=== PATIENT | female | born 1960 | race Caucasian/White ===

== ENCOUNTER 2024-08-28 16:06 | Emergency (ER) | payer OTHER, SELFPAY ==
[2024-08-28 16:19] VITALS: BP 131/75; PULSE 99; RESP 18; TEMP 36.8; O2SAT 100
--- NOTE | 2024-08-28 16:22 | ED_ITS ---
HPI - Female Genitourinary General Chief complaint: Urogenital-Female Stated complaint: Possible UTI Time Seen by Provider: 08/28/24 16:09 Source: patient Mode of arrival: ambulatory Limitations: no limitations History of Present Illness HPI Narrative: Steve is a 64-year-old female patient presenting to the clinic today with complaints of possible urinary tract infection. She reports she is having burning with urination for the next 5 days. No known fevers, chills, body aches. Denies any nausea or vomiting. Denies any back pain or abdominal pain. Related Data Home Medications ?Medication ?Instructions ?Recorded ?Confirmed ?Last Taken ?Type pravastatin 20 mg tablet mg 08/28/24 Unknown History Review of Systems Review of Systems: Pertinent positives per HPI. Patient denies any fever, chills, rash, headache, visual changes, dizziness, cough, shortness of breath, chest pain, palpitations, nausea, vomiting, diarrhea, constipation, abdominal pain PMFSH Comments At the time of my signature, I reviewed and agree with the nursing past medical, surgical, social, and family history. There is no relevant family history pertinent to the patient complaint. Exam Narrative: General: Well-developed, well nourished, in no apparent distress. Head: Normocephalic, atraumatic. Cardio: Regular rate and rhythm, s1 and s2 normal, no murmur appreciated. Resp: Clear to auscultation bilaterally, no rhonchi, rales, wheezing or rubs. Abdomen: Soft, pliable, bowel sounds present in all quadrants, suprapubic tender to palpation, no organomegly, no CVAT tenderness. Course Course Emergency Course: Portions of this record may have been created with voice recognition software. Level of Care: Express Care Visit Vital Signs Vital signs: Vital Signs Temperature 36.8 C 08/28/24 16:19 Pulse Rate 99 08/28/24 16:19 Respiratory Rate 18 08/28/24 16:19 Blood Pressure 131/75 08/28/24 16:19 Pulse Oximetry 100 08/28/24 16:19 Oxygen Delivery Room Air 08/28/24 16:19 Temperature 36.8 C 08/28/24 16:19 Pulse Rate 99 08/28/24 16:19 Respiratory Rate 18 08/28/24 16:19 Blood Pressure 131/75 08/28/24 16:19 Pulse Oximetry 100 08/28/24 16:19 Oxygen Delivery Room Air 08/28/24 16:19 Vital signs reviewed MDM - Female Genitourinary MDM Narrative Medical decision making narrative: At the time of visit patient is resting comfortably on the exam table. Patient appears to be nontoxic. Labs: Urinalysis positive for nitrates and blood. We will send urine for culture. Plan: I suspect patient has acute cystitis. Prescription for Bactrim was sent to the pharmacy. Supportive measures were discussed with the patient and they voiced understanding discharge instructions and agrees to treatment plan. Return precautions reviewed Differential Diagnosis Differential diagnosis: Likely urinary tract infection and cystitis Lab Data Labs: Lab Results 08/28/24 Range/Units 16:31 POC Urine Color Yellow POC Urine Clarity Clear POC Urine pH 6.5 POC Ur Specif [place] 1.010 POC Urine Protein Negative (Negative) POC Ur Glucose (UA) Negative (Negative) POC Urine Ketones Negative (Negative) POC Urine Blood Trace (Negative) POC Urine Nitrite Positive (Negative) POC Urine Bilirubin Negative (Negative) POC Urine Urobilinogen 0.2 POC U Leukocyte Esteras Negative (Negative) Discharge Plan Discharge Clinical Impression: Urinary tract infection Qualifiers: Urinary tract infection type: acute cystitis Hematuria presence: with hematuria Qualified Code(s): N30.01 - Acute cystitis with hematuria Patient Disposition: Home Condition: Stable Instructions: Antibiotic Form, Urinary Tract Infection in Women (ED) Additional Instructions: Increase fluids and stay well hydrated Wipe front to back. May use wet wipes. Avoid tub baths If sexually active- pee before and after intercourse. Wear cotton panties Avoid tight clothing up against the genitals Follow up with your PCP in 1 week if symptoms persist. Patient Language: Ugandan Prescriptions: New sulfamethoxazole-trimethoprim [Bactrim DS] 800-160 mg tablet 1 tablet PO Q12H 7 Days Qty: 14 0RF No Action pravastatin 20 mg tablet Follow-up/Referrals: PHYSICIAN,ARMHOLE [employer]LLER HANDSTITCHING MACHINE [Primary Care Provider] - Time of Disposition: 16:38 Quality NIHSS Nursing Documentation ED NIHSS nursing documentation: reviewed/agree
[2024-08-28 16:34] LABS: EDUAAPPEAR Clear; EDUABILI Negative (Negative); EDUABLOOD Trace (Negative); EDUACOLOR1 Yellow; EDUAGLUCOSE Negative (Negative); EDUAKETONE Negative (Negative); EDUALEUKO Negative (Negative); EDUANITRATE Positive (Negative); EDUAPH 6.5; EDUAPROTEIN Negative (Negative); EDUAUROBILI 0.2
--- OUTSIDE RECORDS SUMMARY | 2024-08-28 17:48 | XMS_ITS | Clinical Summary ---
Author Organization [facility] Address [address] [place] [address] Care Team Providers Care Area Field Person Name Role Phone Merle Rasmussen MD Primary Care Provider + Allergies Active Allergy Reactions Criticality Noted Date Comments Amoxicillin-Pot Clavulanate Other (see comment) 02/16/2024 Pressure in chest Ciprofloxacin Other (see comment) 02/16/2024 Pressure in chest Morphine Shortness of Breath High 02/16/2024 Medications pravastatin (PRAVACHOL) 20 MG tabletIndications: Mixed hyperlipidemia Take 1 tablet (20 mg total) by mouth nightly at bedtime. 90 tablet 3 02/16/20 24 025 Active Sodium Sulfate-Mag Sulfate-KCl (SUTAB) 2236-679-042 MG TabIndications:Pos itive colorectal cancer screening using Cologuard test Take 12 tablets by mouth see administration instructions. Take 12 tablets at 5:00pm the evening before colonoscopy then take 12 tablets at 4:00am morning of colonoscopy. 24 tablet 04/21/20 Active Additional Information Patient not taking.Reported on 06/29/2024 Multiple Vitamin (MULTIVITAMIN ADULT OR) Take by mouth. Activ e vitamin D3, cholecalciferol, (D 1000) 25 mcg capsule Take 1 capsule (1,000 Units total) by mouth. Active Active Problems Problem Noted Date Diagnosed Date Positive colorectal cancer screening using Colog uard test 04/21/2024 Prediabetes 02/24/2024 Mixed hyperlipidemia 02/16/2024 Overview (02/16/2024): Pt takes pravastatin. Tolerates well. Assessment & Plan (02/16/2024 11:54 AM CDT): Ordered CMP and lipid panel to evaluate level of control. Continue pravastatin. Hx of cancer of lung 02/16/2024 Overview (02/16/2024): Followed with cardiothoracic surgery. S/p lung resection. No chemo/radiation. Had two types of cancer. Records will be requested. Assessment & Plan (02/16/2024 11:57 AM CDT): Will request records to get more details on type of cancer and management. Former smoker 02/16/2024 Overview (02/16/2024): Quit 2016. Osteopenia 02/16/2024 Overview (02/16/2024): Takes vitamin D and calcium Encounters Date Type Department Care Team Description 06/29/2024 8:40 AM WINE MANAGER [facility] - [address] [place] [address] Irving Chavira, Shortness Of Breath 06/29/2024 [facility] - [facility] [address] [place] [address] Irving Chavira, Records 06/29/2024 [facility] [address] [place] [address] Irving Chavira, Records 06/29/2024 Travel 06/14/2024 9:30 AM WINE MANAGER Anesthesia Event [facility] [address] [place] [address] Brigida Glover CRNA Hitt, Tracy A, CRNA 06/14/2024 9:15 AM WINE MANAGER - 06/14/2024 10:00 AM [facility] Surgery [facility] [address] [place] [address] Jayleen Newsome MD COLONOSCOPY WITH POLYPECTOMIES 06/14/2024 7:32 AM WINE MANAGER - 06/14/2024 11:00 AM [facility] Hospital Encounter [facility] [address] [place] [address] Jayleen Newsome MD Discharge Disposition: Home or Self Care (Routine Discharge) 06/14/2024 Travel from Last 3 Months Immunizations Immunization Administration Dates Next Due Influenza Adult (Generic) 02/21/2019,02/07/2015 PFIZER COVID-19 (ORIGINAL FO RMULATION, PURPLE CAP) mRNA, LNP-S, PF, 30 MCG/0.3 ML DOSE 07/19/2020,06/27/2020 Pneumococcal (Prevnar 20) 02/16/2024 Tdap (Generic) 05/29/2015 Family History Medical History Relation Comments No Known Problems Brother 1 No Known Problems Child 1 No Known Problems Child 2 Cancer Father Dementia Mother No Known Problems Sister Relation Status Comments Brother 1 Alive Brother 2 Child 1 Alive Child 2 Alive Father lung, smoker, me sothelioma Mother Alive Sister Alive Social History Tobacco Use Types Packs/Day Years Used Date Smoking Tobacco: Former Cigarettes 1 15 Q uit: 08/23/2015 Smokeless Tobacco: Never Tobacco Cessation:Counseling Given: Yes Comments:1 PPD 35 years Alcohol Use Standard Drinks/Week Comments Never 0 (1 standard drink = 0.6 oz pur e alcohol) PHQ-2 Answer Date Recorded Patient Health Questionnaire-2 Score 0 06/29/2024 Comments Unknown Sex and Gender Information Value Date Recorded Sex Assigned at Not on file Legal Sex Female 2:03 PM CDT Gender Identity Not on file Sexual Orientation Not on file 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 [employer] Not on file Not on file Not on file Last Filed Vital Signs Vital Sign Reading Time Taken Comments Blood Pressure 158/80 06/29/2024 9:33 AM WINE MANAGER Pulse 90 06/29/2024 8:53 AM WINE MANAGER Temperature 36.5 C (97.7 F) 06/29/2024 8:53 AM WINE MANAGER Respiratory Rate 18 06/29/2024 8:53 AM WINE MANAGER Oxygen Saturation 98% 06/29/2024 8:53 AM WINE MANAGER RA Inhaled Oxygen Concentration - - Weight 73 kg (161 lb) 06/29/2024 8:53 AM WINE MANAGER Height 165.1 cm (5' 5 ) 06/29/2024 8:53 AM WINE MANAGER Body Mass Index 26.79 06/29/2024 8:53 AM WINE MANAGER Plan of Treatment Upcoming Encounters Date Type Department Care Team (Late st Contact Info) Description 09/28/2024 11:30 AM CDT Office Visit [facility] [address] [place] [address] Irving Chavira DO [address] [place] [address] Health Maintenance Due Date Last Done Comments Hepatitis C 07/31/1977 Zoster Vaccines (1 of 2) 07/31/2009 COVID-19 Vaccine ( - season) 2024 08/29/2021, 02/16/2021, 07/19/2020, Additional history exists DTaP, Tdap and Td Vaccines (2 - Td or Tdap) 05/29/2025 05/29/2015 Mammogram Screening 03/24/2026 03/24/2024, 12/04/2022, 12/04/2022, Additional history exists Colorectal Cancer Screening Colonoscopy (10 Years) 06/14/2034 06/14/2024, 06/14/2024 RSV Immunization or 60+ Years (1 - 1-dose 75+ series) 07/31/2034 Dexa Scan (General) Completed 09/11/2022 Pneumococcal Vaccine: 50+ Years Completed 02/16/2024 Colorectal Cancer Screening FIT-DNA (3 Years) Discontinued 03/01/2024, 03/01/2024, 07/15/2020 PHQ-2 (Physician [place]) Completed 06/29/2024 Meningococcal B Vaccine Aged Out No l onger eligible based on patient's age to complete this topic Meningococcal Vaccine Aged Out No robert joseline eligible based on patient's age to complete this topic RSV Immunizations Under 20 Months Aged Out No longer eligible based on patient's age to complete this topic Procedures Procedure Name Priority Date/Time Associated Diagnosis Comments COLONOSCOPY FLX DX W/COLLJ SPEC WHEN PFRMD 06/14/2024 9:30 AM WINE MANAGER Positive colorectal cancer screening using Cologuard test Case Notes C COLONOSCOPY Routine 06/14/2024 7:42 AM WINE MANAGER PATHOLOGY Routine 06/14/2024 12:00 AM WINE MANAGER MG SCREENING W QUENTIN BOYD DIGI Routine 03/24/2024 7:21 AM WINE MANAGER Encounter for mammogram to establish baseline mammogram COLOGUARD (EXACT SCIENCE) Routine 03/01/2024 9:45 AM CDT Colon cancer screening from Last 3 Months or Most Recently Relevant to Health Maintenance Results * Pathology (06/14/2024 12:00 AM WINE MANAGER) PATHOLOGY [facility] Department of Laboratory Medicine [address] [place] [id number] , extension [phone] Pathology Report Surgical Pathology Report Name: STEVE ABEL Specimen #: [id number] Age: 3 1960 (Age: 63) Location: [facility] Sex: F Procedure Date: 06/14/2024 Hospital #: [id number] Date Received: 06/15/2024 Date Reported: 06/16/2024 Provider: JAYLEEN NEWSOME MD Source: A: Colon, hepatic flexure, polyp B: Colon, descending, polyp C: Rectum, polyp Clinical History: Positive colorectal cancer screening using Cologuard test. FINAL DIAGNOSIS: A. Hepatic flexure polyps, biopsy: Minimal hyperplastic mucosal changes. B. Descending colon polyp, biopsy: Hyperplastic polyp. C. Rectal polyp, biopsy: Hyperplastic polyp. Gross Description: A. Received in formalin, labeled with a patient label and as biopsy of polyps hepatic flexure are 2 pieces of pink-gonzales tissue each 0.2 cm. The specimen is entirely submitted in cassette A1. B. Received in formalin, labeled with a patient label and as descending colon polyp biopsy is a 0.3 cm piece of gonzales tissue. The specimen is entirely submitted in cassette B1. C. Received in formalin, labeled with a patient label and as rectal polyp is a 0.1 cm piece of delicate white-gonzales tissue. The specimen is entirely submitted in cassette C1. Gross examination (when applicable) was performed at [facility], [address] [place] [address]. This case was interpreted and signed out at [facility] [address] [place] [address]. Electronically Signed Out STAR MANNING MD [facility] TISSUE COLON STRUCTURE / Unknown 06/14/2024 9:47 AM WINE MANAGER Tissue specimen (specimen) COLON STRUCTURE / Unknown 06/14/2024 9:51 AM WINE MANAGER Tissue specimen (specimen) SPECIMEN FROM RECTUM / Unknown 06/14/2024 9:55 AM WINE MANAGER us Jayleen Newsome MD PATHOLOGY/CYTOLOGY ORDERABLE S Final Result [facility] [address] [place] [address], [phone] * MG SCREENING W QUENTIN BOYD DIGI (03/24/2024 7:21 AM WINE MANAGER) Anatomical Region Laterality Modality Breast Bilateral Mammography 04/11/2024 1:16 PM WINE MANAGER Impressions 04/11/2024 1:19 PM WINE MANAGER IMPRESSION: No significant interval change. No mammographic evidence of malignancy. RECOMMENDATION: Routine ScreeningBilateral OVERALL IMAGING ASSESSMENT: ACR BI-RADS 2 - BENIGN FINDING(S). Ordered By: MERLE RASMUSSEN Interpreted By: Brayan Cary, 04/11/2024 1:16 PM Narrative 04/11/2024 1:19 PM WINE MANAGER [facility] [address] [place] [address] EXAMINATION: MG SCREENING W QUENTIN ENRIQUE INDICATIONS: Screening TECHNIQUE: Digital full field CC and MLO screening mammography bilaterally to include 3-D Tomosynthesis technique. This study was read with the assistance of a computer-aided detection system. HISTORY: No reported breast complaint. No documented personal or first degree family history of breast cancer. No documented prior breast procedure. COMPARISON: 11/26/2022, 10/31/2022, 10/27/2021, and 10/02/2021. TISSUE DENSITY: The breasts are heterogeneously dense, which may obscure small masses. FINDINGS: Few scattered typically benign round and rim calcifications. No suspicious microcalcification or mass. No developing asymmetry or architectural distortion. No axillary adenopathy. us Merle Rasmussen MD MAMMO Final Re sult * (ABNORMAL) COLOGUARD ([employer]) (03/01/2024 9:45 AM CDT) COLOGUARD RESULT Positive( A) Negative [employer] (CLIA #:[id number]) Comment: POSITIVE TEST RESULT. A positive Cologuard result should be followed with a colonoscopy or visual examination of the colon. The normal value (reference range) for this assay is negative. TEST DESCRIPTION: Composite algorithmic analysis of stool DNA-biomarkers with hemoglobin immunoassay. Quantitative values of individual biomarkers are not reportable and are not associated with individual biomarker result reference ranges. Cologuard is intended for colorectal cancer screening of adults of either sex, 45 years or older, who are at average-risk for colorectal cancer (CRC). Cologuard has been approved for use by the U.S. FDA. The performance of Cologuard was established in a cross sectional study of average-risk adults aged 50-84. Cologuard performance in patients ages 45 to 49 years was estimated by sub-group analysis of near-age groups. Colonoscopies performed for a positive result may find as the most clinically significant lesion: colorectal cancer [4.0%], advanced adenoma (including sessile serrated polyps greater than or equal to 1cm diameter) [20%] or non- advanced adenoma [31%]; or no colorectal neoplasia [45%]. These estimates are derived from a prospective cross-sectional screening study of 10,000 individuals at average risk for colorectal cancer who were screened with both Cologuard and colonoscopy. (Sharda Mckeon al, N Engl J Med 2014;370(14):0565-3561.) Cologuard may produce a false negative or false positive result (no colorectal cancer or precancerous polyp present at colonoscopy follow up). A negative Cologuard test result does not guarantee the absence of CRC or advanced adenoma (pre-cancer). The current Cologuard screening interval is every 3 years. ([place] [employer] Society and U.S. Multi-Society Task Force). Cologuard performance data in a 10,000 patient pivotal study using colonoscopy as the reference method can be accessed at the following location: www.[employer]bit.[employer]Plex/results. Additional description of the Cologuard test process, warnings and precautions can be found at www.cologuard.com. STOOL STOOL SPECIMEN / Unknown 03/01/2024 9:45 AM CDT 03/02/2024 12:01 PM CDT Merle Rasmussen MD BODY FLUIDS AND STOOLS O RDERABLES Final Result [employer] ([facility]) [address] [place] [address], [employer] (CLIA #:[id number]) [address] [place] [address] from Last 3 Months or Most Recently Relevant to Health Maintenance Insurance [facility] Care Teams Area Field Person Relationship Specialty Start Date End Date Merle Rasmussen MD [address] [place] [phone] PCP - General FAMILY PRACTICE 02/16/24
--- OUTSIDE RECORDS SUMMARY | 2024-08-28 17:48 | XMS_ITS | Data Portability ---
Author Organization [place] - [facility] [place], TEST SITE Address [address] [place] [id number] Care Team Providers Care Clerical Office Name Role Phone LISBETHBRIGIDA Primary Care Provider Assessment Encounter Date Assessment Date Assessment LastModified by Organization Details LastModified Time 05/06/2020 05/06/2020 59 y/o female c/ o Right side pain. On March 11 patient had Rt. lung removed due to lung cancer. She describes her pain as tender and sharp lasting a few moments. Patient's pain level runs 7-8 interfering with sleep and work. She was taking hydrocodone at night time pain has eased up but states that the hydrocodone is not agreeing with her stomach and is causing stomach pain. She states that her cardiothoracic surgeon instructed her not to receive any nerve blocks. I will consult with him and discuss intercostal nerve blocks. 22 minutes spent in telehealth consultation, chart review and documentation. [email or web address] Not available 05/06/2020 19:54:18 06/24/2020 06/24/2020 f/u pending CT, MRI, DEXA, and lipids RTC in 5 months for f/u appt. HR elevated at 112- admits she has not had much water to drink and has had several cups of coffee today- advised her to purchase pulse oximeter and monitor HR- if consistently > 100 f/u in office for evaluation. [email or web address] Not available 06/24/2020 21:43:45 Plan of Treatment Reminders Order Date Submit Date Provider Last Modified By Organization Details Last Modified Time Details Appointments None recorded. Lab noninvasive colorectal cancer DNA + occult blood screening, stool 2020 021 [facility] (Cologuard Orders Only), [address], [address], [place], [address], 13:25:01 lipid panel, serum 2020 021 formerly [facility] [employer] [facility], [address] , [address], [place], [address], 18:55:09 Referral ENT referral - h/o amoxicillin , doxy, medrol ajay, and levaquin use w/ minimal relief 2020 021 DA Not available 11:01:08 Procedures None recorded. Surgeries None recorded. Imaging CT, sinuses, w/o contrast 2020 021 [email or web address] 4 [facility], [facility] , [address], [place], [address], 1 16:35:11 MRI, breast, bilateral, w/wo contrast - pt has h/o total pneumonecto my and is still very sore and tender to endure traditional mammogram 2020 [facility] [place] [address], [facility] , [address], [place], [address], 1 16:34:48 DEXA 2020 021 [facility], [facility] , [address], [place], [address], 1 18:55:09 Medication Orders famotidine 20 mg tablet [address] [facility] [address], [address] [facility], [place], [address], 1 18:55:09 levofloxaci n 500 mg tablet 2020 021 brandan [facility] 5726, [address] [place], [address], 15:25:00 doxycycline hyclate 100 mg capsule 2020 021 [facility] 5726, [address] [place], [address], 15:25:03 Medrol (Ajay) 4 mg tablets in a dose pack 2020 021 [facility] 5726, [address] [place], [address], 15:25:06 tramadol 50 mg tablet 2019 020 [facility], [address] [place], [address], 15:25:09 Patient TargetsNo targets recorded. Patient Instructions Encounter Date Encounter Id Patient Instructions Last Modified By Organization Details Last Modified Time 06/24/2020 [id number] well visit, wome n 50 to 65: care instructions [email or web address] Not available 06/24/2020 18:55:09 wellness education [email or web address] Not available 06/24/2020 18:55:09 Reason for Referral ENT Referral for Maxillary s inus pain h/o amoxicillin, doxy, medrol ajay, and levaquin use w/ minimal relief Referring Physician: Brigida Mosquera, Family Medicine, Encounter Date: 06/24/2020 Results Created Date Observation Date Name Description Value Unit Range Abnormal Flag Note LastModifiedBy Organization Detail LastModifiedTime 04/29/20 20 04/29/2020 rapid flu (A+B) Flu negati ve Not Available In-House Results For Internal Use Only, Do Not Delete/merge, [id number] 04/29/2020 16:50:53 04/29/20 20 04/29/2020 rapid strep group A, throa t Strep positi ve Not Available In-House Results For Internal Use Only, Do Not Delete/merge, [id number] 04/29/2020 16:50:37 04/29/20 20 05/01/2020 SARS CoV 2 RNA (COVI D-19) , QL, production cell leader-P CR, respi rator y speci men sars-cov-2, FLO (covid-19) lc NOT DETECT ED not detect ed Na This nucle ic acid ampli ficat ion test was devel oped and its perfo rmanc e ady cteri stics deter mined by [facility]. Nucle ic acid ampli ficat ion tests inclu de PCR and TMA. This test has not been FDA clear ed or appro kathy. This test has been autho rized by FDA under an Emerg ency Use Autho rizat ion (EUA) . This test is only autho rized for the durat ion of time the decla ratio n that circu mstan stacy exist justi fying the autho rizat ion of the emerg ency use of in vitro diagn ostic tests for detec tion of SARS- CoV-2 virus and/o r diagn osis of COVID -19 infec tion under secti on 564(b )(1) of the Act, 21 U.S.C . 360bb b-3(b ) (1), unles s the autho rizat ion is termi nated or revok ed soone r. When diagn ostic testi ng is negat suzy, the possi bilit y of a false negat suzy resul t shoul d be consi dered in the alena xt of a patie nt's recen t expos ures and the prese nce of clini dk signs and sympt oms consi stent with COVID -19. An indiv idual witho ut sympt oms of COVID -19 and who is not natasha ing SARS- CoV-2 virus would expec t to have a negat suzy (not detec jose) resul t in this assay . Perfo rmed At: [facility] [place] [address] [place] [address] Radha Rosen MD [phone] Not Available [facility] ([facility]) [address], [place], [address], 05/01/2020 17:15:47 06/18/19 21 06/19/2020 CMP, serum or plasm a glucose 102 mg/dL 65-99 high Fasti ng refer ence inter vivian For someo ne witho ut known diabe shira, a gluco se value betwe en 100 and 125 mg/dL is consi stent with predi abete s and shoul d be confi rmed with a follo w-up test. Not Available [facility] [address], [address], 06/19/2020 07:56:01 06/18/1906/19/2020 CMP, serum or plasm a urea nitrogen (BUN) 13 mg/dL 7-25 normal Not Available [facility] [address], [address], 06/19/2020 07:56:01 06/18/1906/19/2020 CMP, serum or plasm a creatinine 0.94 mg/dL 0.50-0 .99 normal For patie nts >49 years of age, the refer ence limit for Creat inine is appro ximat iwll 13% highe r for peopl e ident ified as Afric an-Am abby n. Not Available [facility] [address], [address], 06/19/2020 07:56:01 06/18/19 21 06/19/2020 CMP, serum or plasm a eGFR non-afr. paraguayan 66 mL/mi n/1.7 3m2 > or = 60 normal Not Available [facility] [address], [address], 06/19/2020 07:56:01 06/18/1906/19/2020 CMP, serum or plasm a eGFR 76 mL/mi n/1.7 3m2 > or = 60 normal Not Available [facility] [address], [address], 06/19/2020 07:56:01 06/18/19 21 06/19/2020 CMP, serum or plasm a BUN/creatini ne ratio NOT APPLIC ABLE (calc ) 6-22 Not Available [address] [place], [address], 06/19/2020 07:56:01 06/18/19 21 06/19/2020 CMP, serum or plasm a sodium 136 mmol/ L 135-14 6 normal Not Available [address] [place], [address], 06/19/2020 07:56:01 06/18/1906/19/2020 CMP, serum or plasm a potassium 4.2 mmol/ L 3.5-5. 3 normal Not Available [address], [address], 06/19/2020 07:56:01 06/18/1906/19/2020 CMP, serum or plasm a chloride 101 mmol/ L 98-110 normal Not Available [address], [address], 06/19/2020 07:56:01 06/18/1906/19/2020 CMP, serum or plasm a carbon dioxide 22 mmol/ L 18-30 normal Not Available [address], [address], 06/19/2020 07:56:01 06/18/1906/19/2020 CMP, serum or plasm a calcium 9.9 mg/dL 8.6-10 .4 normal Not Available [address], [address], 06/19/2020 07:56:01 06/18/1906/19/2020 CMP, serum or plasm a protein, total 7.4 g/dL 6.1-8. 1 normal Not Available [address], [address], 06/19/2020 07:56:01 06/18/1906/19/2020 CMP, serum or plasm a albumin 4.2 g/dL 3.6-5. 1 normal Not Available [address], [address], 06/19/2020 07:56:01 06/18/19 21 06/19/2020 CMP, serum or plasm a globulin 3.2 g/dL_ (calc ) 1.9-3. 7 normal Not Available [address], [address], 06/19/2020 07:56:01 06/18/1906/19/2020 CMP, serum or plasm a albumin/glob ulin ratio 1.3 (calc ) 1.0-2. 5 normal Not Available [address], [address], 06/19/2020 07:56:01 06/18/1906/19/2020 CMP, serum or plasm a bilirubin, total 0.3 mg/dL 0.2-1. 2 normal Not Available [address], [address], 06/19/2020 07:56:01 06/18/1906/19/2020 CMP, serum or plasm a alkaline phosphatase 128 U/L 37-153 normal Not Available [facility] [address], [address], 06/19/2020 07:56:01 06/18/1906/19/2020 CMP, serum or plasm a AST 13 U/L 10-35 normal Not Available [address], [address], 06/19/2020 07:56:01 06/18/1930 0606/19/2020 CMP, serum or plasm a ALT 8 U/L 6-29 normal Not Available [facility] [address] [place] [address], [address], 06/19/2020 07:56:01 06/18/19 21 06/19/2020 CBC w/ auto diff white blood cell count 8.2 thous and/u L 3.8-10 .8 normal Not Available [address], [address], 06/19/2020 07:53:39 06/18/19 21 06/19/2020 CBC w/ auto diff red blood cell count 4.92 ceasar on/uL 3.96-5 .31 normal Not Available [address], [address], 06/19/2020 07:53:39 06/18/19 21 06/19/2020 CBC w/ auto diff hemoglobin 13.7 g/dL 12.0-1 6.3 normal Not Available [address], [address], 06/19/2020 07:53:39 06/18/19 21 06/19/2020 CBC w/ auto diff hematocrit 42.0 % 36.8-4 9.5 normal Not Available [address], [address], 06/19/2020 07:53:39 06/18/1906/19/2020 CBC w/ auto diff MCV 85.4 fL 80.0-1 00.0 normal Not Available [address], [address], 06/19/2020 07:53:39 06/18/19 21 06/19/2020 CBC w/ auto diff MCH 27.8 pg 27.0-3 3.0 normal Not Available [address], [address], 06/19/2020 07:53:39 06/18/19 21 06/19/2020 CBC w/ auto diff MCHC 32.6 g/dL 32.0-3 6.0 normal Not Available [address], [address], 06/19/2020 07:53:39 06/18/19 21 06/19/2020 CBC w/ auto diff RDW 12.3 % 11.0-1 5.0 normal Not Available [address], [address], 06/19/2020 07:53:39 06/18/19 21 06/19/2020 CBC w/ auto diff platelet count 325 thous and/u L 140-40 0 normal Not Available [address], [address], 06/19/2020 07:53:39 06/18/19 21 06/19/2020 CBC w/ auto diff MPV 11.0 fL 7.5-12 .5 normal Not Available [address], [address], 06/19/2020 07:53:39 06/18/19 21 06/19/2020 CBC w/ auto diff absolute neutrophils 6183 cells /uL 1500-7 800 normal Not Available [address], [address], 06/19/2020 07:53:39 06/18/19 21 06/19/2020 CBC w/ auto diff absolute lymphocytes 1222 cells /uL 850-39 00 normal Not Available [address], [address], 06/19/2020 07:53:39 06/18/19 21 06/19/2020 CBC w/ auto diff absolute monocytes 508 cells /uL 200-95 0 normal Not Available [facility] [address], [address], 06/19/2020 07:53:39 06/18/19 21 06/19/2020 CBC w/ auto diff absolute eosinophils 230 cells /uL 15-500 normal Not Available [facility] [address], [address], 06/19/2020 07:53:39 06/18/19 21 06/19/2020 CBC w/ auto diff absolute basophils 57 cells /uL 0-200 normal Not Available [facility] [address], [address], 06/19/2020 07:53:39 06/18/19 21 06/19/2020 CBC w/ auto diff neutrophils 75.4 % normal Not Available [facility] [address], [address], 06/19/2020 07:53:39 06/18/19 21 06/19/2020 CBC w/ auto diff lymphocytes 14.9 % normal Not Available [facility] [address], [address], 06/19/2020 07:53:39 06/18/19 21 06/19/2020 CBC w/ auto diff monocytes 6.2 % normal Not Available [facility] [address], [address], 06/19/2020 07:53:39 06/18/19 21 06/19/2020 CBC w/ auto diff eosinophils 2.8 % normal Not Available [facility] [address], [address], 06/19/2020 07:53:39 06/18/19 21 06/19/2020 CBC w/ auto diff basophils 0.7 % normal Not Available [facility] [address], [address], 06/19/2020 07:53:39 06/18/19 21 06/19/2020 TSH, serum or plasm a TSH 2.29 mIU/L 0.40-4 .50 normal Not Available [facility] - [address], [address], 06/19/2020 08:15:29 06/18/19 21 06/19/2020 urina lysis , dipst ick, refle x micro color YELLOW yellow normal Not Available [facility] - [address], [address], 06/19/2020 08:08:04 06/18/19 21 06/19/2020 urina lysis , dipst ick, refle x micro appearance CLEAR clear normal Not Available [facility] - [address], [address], 06/19/2020 08:08:04 06/18/19 21 06/19/2020 urina lysis , dipst ick, refle x micro specific gravity 1.013 1.001- 1.035 normal Not Available [facility] - [address], [address], 06/19/2020 08:08:04 06/18/1906/19/2020 urina lysis , dipst ick, refle x micro pH 6.0 5.0-8. 0 normal Not Available [facility] - [address], [address], 06/19/2020 08:08:04 06/18/1906/19/2020 urina lysis , dipst ick, refle x micro glucose NEGATI VE negati ve normal Not Available [facility] - [address], [address], 06/19/2020 08:08:04 06/18/1906/19/2020 urina lysis , dipst ick, refle x micro bilirubin NEGATI VE negati ve normal Not Available [facility] - [address] [place], [address], 06/19/2020 08:08:04 06/18/19 21 06/19/2020 urina lysis , dipst ick, refle x micro ketones NEGATI VE negati ve normal Not Available [facility] - [address] [place], [address], 06/19/2020 08:08:04 06/18/19 21 06/19/2020 urina lysis , dipst ick, refle x micro occult blood TRACE negati ve abnormal Not Available [facility] - [address], [address], 06/19/2020 08:08:04 06/18/19 21 06/19/2020 urina lysis , dipst ick, refle x micro protein NEGATI VE negati ve normal Not Available [facility] - [address], [address], 06/19/2020 08:08:04 06/18/19 21 06/19/2020 urina lysis , dipst ick, refle x micro nitrite NEGATI VE negati ve normal Not Available [facility] - [address], [address], 06/19/2020 08:08:04 06/18/1906/19/2020 urina lysis , dipst ick, refle x micro leukocyte esterase 3+ negati ve abnormal Not Available [facility] - [address], [address], 06/19/2020 08:08:04 06/18/19 21 06/19/2020 urina lysis , dipst ick, refle x micro WBC 6-10 /hpf < or = 5 abnormal Not Available [facility] - [address], [address], 06/19/2020 08:08:04 02/09/20 21 06/19/2020 urina lysis , dipst ick, refle x micro RBC NONE SEEN /hpf < or = 2 normal Not Available [facility] [address] [place] [address], [place], [address], 06/19/2020 08:08:04 06/18/19 21 06/19/2020 urina lysis , dipst ick, refle x micro squamous epithelial cells 6-10 /hpf < or = 5 abnormal Not Available [facility] [address] [place] [address], [place], [address], 06/19/2020 08:08:04 06/18/19 21 06/19/2020 urina lysis , dipst ick, refle x micro bacteria NONE SEEN /hpf none seen normal Not Available [facility] [address] [place] [address], [place], [address], 06/19/2020 08:08:04 06/18/19 21 06/19/2020 urina lysis , dipst ick, refle x micro hyaline cast NONE SEEN /lpf none seen normal Not Available [facility] - [address], [place], [address], 06/19/2020 08:08:04 06/18/19 21 06/20/2020 vitam in D, 25-hy droxy , total , serum vitamin D, 25-oh, total 64 NG/mL 30-100 (Note ) Vitam in D, 25-Hy droxy repor ts keira ntrat ions of two commo n forms , 25-OH D2 and 25-OH D3. 25-OH D3 indic ates both endog enous produ ction and suppl ement ation . 25-OH D2 is an indic ator of exoge nous sourc es such as diet or suppl ement ation . Thera py is based on measu remen t of Total 25-OH D, with level s <20 ng/mL indic ative of Vitam in D defic iency , while level s betwe en 20 ng/mL and 30 ng/mL sugge st insuf ficie ncy. Optim al level s are > or = 30 ng/mL . Vitam in D is fat-s olubl e and there fore inadv erten t or inten jaimie l inges tion of exces sivel y high amoun ts could be toxic . Studi es in child dano and adult s sugge st blood level s would need to excee d 150 ng/mL befor e there is any keira rn. Jaya suarez MF, Diane hinton NC, Jewell off-f errar i GUPTA, et al. Evalu ation , treat ment and preve ntion of vitam in D defic iency : an Endoc rine Socie ty clini dk pract ice guide line. J Clin Endoc rinol Metab . 2011; 96(7) :1911 -30. For addit ional infor lanre ruiz refer to http: //hola quesada.Que stDia gnost ics.c om/fa q/FAQ 199 Not Available [facility] [address] [place], [address], 06/20/2020 14:37:39 06/18/19 21 06/20/2020 vitam in D, 25-hy droxy , total , serum vitamin D, 25-oh, D3 64 NG/mL Refer ence range : Not estab lishe d Not Available [facility] [address] [place], [address], 06/20/2020 14:37:39 06/18/19 21 06/20/2020 vitam in D, 25-hy droxy , total , serum vitamin D, 25-oh, D2 <4.0 NG/mL (Note ) Refer ence range : Not estab lishe d This test was devel oprichard and its naseem tical perfo rmanc e ady cteri stics have been deter mined by davian rosario. It has not been clear ed or appro kathy by the [place] Food and Drug Admin istra tion. This assay has been valid ated pursu ant to the CLIA regul ation and is used for Clini dk purpo ses. [facility] med fusio n [address] [facility] [address] [place] [address] [phone] Arsenio matamoros MD See Note 1 Note 1 For addit ional infor lanre ruiz refer to http: //hola Lazo stDia gnost ics.c om/fa q/FAQ 199 (This link is being provi ded for infor alisson nal/ educa jaimie l purpo ses only. ) Not Available [facility] [address] [place], [address], 06/20/2020 14:37:39 04/08/20 20 04/08/2020 XR, chest PROCED URE: CHEST, 3 VIEW, 2019, 2:41 PM INDICA TION: Status post right pneumo nectom y. COMPAR JOSE G: 2019, 2009, 2019 FINDIN GS: PA, apical and latera l views of the chest. Comple te opacif icatio n of right hemith orax with volume loss and discre te termin ation of right mainst em bronch us. Left to right medias tinal shift. Small amount of subcut aneous emphys talia over the right mid abdome n. Overal l, subcut aneous emphys talia, marked ly decrea sed compar ed to previo us radiog raph. Status post partia l resect ion, director of pulmonary unit ior right sixth rib. IMPRES WILVER: STATUS POST RIGHT PNEUMO NECTOM Y WITH RIGHT VOLUME LOSS. INTERP RETED AND ELECTR ONICAL LY SIGNED BY: ROSEMARY WARD MD on 2019 at 04:12 PM Final Dictat ed: 2019 4:17 pm Rosemary Long MD [facility] [place] Signed (Bean craft Signat ure): 2019 4:17 pm Signed by: Rosemary Long MD [facility] [place] [email or web address] [facility] (Imaging) [address], [place], [address], 04/09/2020 12:07:33 07/05/19 21 07/05/2020 rad - CT repor t THIS EXAM IS THE PROPER TY OF [facility] . TO OBTAIN AN ORIGIN AL REPORT , PLEASE RUBA YEUNG AT . [facility] [address], [address] [place] [address] Phone: Fax: Patien t Name: ANCA ABEL Date of : 960 [facility] 2 Access ion Number : [id number] Date of Servic e: 021 10:30: [address] SINUS WITHOU T IV CONTRA ST 021 10:30 AM Compar isons: None provid ed Indica tions: CHRONI C SINUSI TIS/ HOSPITALITY RECRUITER *RTN* [facility]; CHRONI C SINUSI TIS; ADDL: Maxill laura sinus pain. Headac he, unspec ified. ; Protoc ol: 2.5 mm axial sectio ns were review ed throug h the parana mateusz sinuse s was simila r field- of-vie w. Bone and soft tissue algori thms were marcel d. Interiano l reform ats were perfor med and review ed. It is our policy to use one or more of the follow ing dose reduct ion techni ques when applic able: Automa tic exposu re contro l, adjust ment of mA and/or kvP accord ing to patien ts size, and use of iterat suzy recons tructi on techni que. FINDIN GS: Limite d evalua tion of the intrac ranial conten ts appear s grossl y unrema rkable . Intrao rbital conten ts also appear grossl y normal . Visual ized paroti d glands are homoge nous in attenu ation. Nasoph arynx and visual ized oropha rynx mucosa l spaces appear relati vely symmet jennifer and unrema rkable . No eviden ce of optic nerves or ICA dehisc ence with the spheno id sinus. Minima l bilate ral mastoi d air cell opacif icatio n withou t gross eviden ce of aggres sive charac ter. Otherw ise mastoi d air cells and middle ear caviti es appear clear. Skull base appear s grossl y unrema rkable . Minima l bifron ramos sinus retain ed secret ions. Right maxill laura latera l wall and alveol ar recess mural mucosa l thicke ct in part polypo id with greate st interiano l dimens ion of 1.1 cm. Left maxill laura sinus appear s clear. Ostiom eatal unit lumens are widely patent bilate rally. Minima l right spheno idal mural mucosa l thicke ct and/or retain ed secret ions. Left spheno id appear s clear. Scatte red ethmoi donya additi onal mural mucosa l thicke ct and/or retain ed secret ions. No apprec iable nasal septal deviat ion or spurri ng. Unrema rkable nasal turbin ates. IMPRES SIONS: 1. Scatte red right maxill laura and bilate ral ethmoi donya predom inant mural mucosa l thicke ct and retain ed secret ions. INTERP RETED AND ELECTR ONICAL LY SIGNED BY: DAVIDSON MCKNIGHT MD on 2020 at 03:54 PM DICOM images are availa ble for review at [email or web address] amanda Saab ers may contac t Public Relati ons at to obtain access . brandan Giron [facility] (Imaging) [address], [place], [address], 07/12/2020 18:15:32 07/05/19 21 07/05/2020 CT, sinus es, w/o contr ast No observ ation record ed. [facility] [address], [place], [address], 07/12/2020 18:15:32 09/20/19 21 09/19/2020 CT, chest , w/ contr ast PROCED URE: CT OF THE CHEST WITH IV CONTRA ST CLINIC AL HISTOR Y: 60-yea r-old woman with squamo us cell carcin alexander of the lung diagno sed Dec 08, 2019. Right pneumo nectom y. Restag ing. COMPAR JOSE G: CT of the chest Feb 06, 2020 TECHNI QUE: 90 mL Isovue 300 IV. Interiano l and sagitt al reform ations . It is our policy to use one or more of the follow ing dose reduct ion techni ques when applic able: Automa jose exposu re contro l, adjust ment of the mA and/or KV accord ing to patien ts size, and use of iterat suzy recons tructi on techni que. FINDIN GS: Topogr am: Comple te opacif icatio n of the right hemith orax with volume loss and medias tinal shift into the right chest. Axial images with interiano l recons tructi ons: Lung window s: Right- sided pneumo nectom y. Eviden tly intact staple line at the right mainst em bronch us. Emphys talia. Left lung clear. Bone window s of the chest: Right thorac otomy. No aggres sive destru ctive proces s seen. Soft tissue window s of the chest: Presum ed simple cysts of the left kidney . Fatty liver. Athero sclero tic vascul ar diseas e of the thorac ic aorta. Small medias tinal lymph nodes withou t change from before . IMPRES WILVER: Status post right pneumo nectom y. No eviden ce of recurr ent or metast atic diseas e. INTERP RETED AND ELECTR ONICAL LY SIGNED BY: KURTIS Rooney MD on 2020 at 04:14 PM Final Dictat ed: 2020 4:25 pm Chris Martinez [facility] [place] Signed (Elect venancio Signat ure): 2020 4:25 pm Signed by: Chris Martinez [facility] [place] INTERFACE [facility] (Imaging) [address], [place], [address], 09/19/2020 18:28:09 Result Notes None recorded. Problems Name Problem SNOMED Code Status Onset Date Resolution Date Notes Provider Name and Address Organization Details Recorded Time Hyperlipide tomasa 03372004 [facility] 18:01:14 History of basal cell carcinoma of eyelid 2361407620309 7 Active [address] [place], [address], [facility] 0 14:04:17 History of pneumonecto my [id number] Active 2019 right due to lung cancer ; [address] [place], [address], [facility] 0 17:41:55 Non-small cell lung cancer 125303332 Active [address] [place], [address], [facility] 0 17:44:43 Problem Notes None recorded. Procedures Surgical History Date Name Laterality Status Provider Name and Address Organization Details Recorded Time 06/06/19 Telemedicine Visit completed Nydia Garay [facility] [place] 06/06/2020 13:27:47 05/24/19 21 Telemedicine Visit completed Nydia Garay [facility] [place] 05/24/2020 12:34:33 03/11/20 20 total pneumonectomy completed Johana Radford [facility] [place] 03/13/2020 13:11:38 09/18/19 20 Telephone Visit cancelled Molly Pride [facility] 09/18/2019 10:43:57 04/19/20 19 Most Recent Mammogram completed Nydia Garay [facility] [place] 07/25/2019 13:13:21 10/08/19 19 XRay Note completed JULIANNE [address] [place], [address], [facility] 10/07/2018 21:15:37 06/22/18 92 Hysterectomy completed [address] [place], [address], [facility] 03/20/2019 14:55:50 Caesarean Section completed Dante Saeed [facility] [place] 01/19/2018 17:29:02 Other completed Deonna Cha [facility] 06/29/2019 16:33:18 pneumothorax relief completed Swetasavannah Delatorre [facility] [place] 11/03/2019 17:08:22 Lung bx plug w/del sys completed [facility] 12/26/2019 10:30:46 Imaging Results Imaging Date Name Status LastModified by Organiz ation Details LastModified Time 04/08/2020 XR, chest completed [email or web address] [facility] (Imaging) [address] [place], [address], 04/09/2020 12:07:33 07/05/2020 rad - CT report completed [facility] (Imaging) [address] [place], [address], 07/12/2020 18:15:32 07/05/2020 CT, sinuses, w/o contrast completed [facility] [address], [place], [address], 07/12/2020 18:15:32 09/19/2020 CT, chest, w/ contrast active INTERFACE [facility] (Imaging) [address] [place], [address], 09/19/2020 18:28:09 Procedure Notes None recorded. Medical Equipment None Reported. Allergies Allergen ID Allergen Name Allergen Category Reaction Reaction Severity Criticality Documentation Date Start Date Code Code System Note Provider Name and Address Organization Details Recorded Time 80400 morphine medicatio n Not available Not available Not available 2017 7052 RxNorm Carrie delgado [facility] [place] 8 15:39:20 96994 Augmentin medicatio n nausea Not available Not available 09/18/2019 50924 2 RxNorm BRIGIDA MOSQUERA [facility] [address], [place], [address], [facility] 0 15:51:33 84624 Cipro medicatio n abdominal pain diarrhea nausea Not available Not available Not available Not available 10/19/201929963 3 RxNorm BRIGIDA LISBETH, [facility] [address], [place], [address], [facility] 0 15:51:46 Medications Name Sig Start Date Stop Date Status Note LastModified by Organization Details LastModified Time amoxicillin 500 mg capsule TAKE 1 CAPSULE BY MOUTH THREE TIMES DAILY 03/19 completed Not Available Not Available Not Available Augmentin 875 mg-125 mg tablet Take 1 tablet every 12 hours by oral route with meals for 10 days. 11/25 completed Not Available Not Available Not Available neomycin-po lymyxin-hyd rocort 3.5 mg/mL-10,00 0 unit/mL-1 % ear solution INSTILL 4 DROPS INTO AFFECTED EAR(S) THREE TIMES DAILY 06/24 completed Not Available Not Available Not Available doxycycline hyclate 100 mg capsule Take 1 capsule twice a day by oral route for 10 days. 06/24 completed Not Available Not Available Not Available ibuprofen 800 mg tablet TAKE 1 TABLET BY MOUTH THREE TIMES DAILY FOR 14 DAYS active Not Available Not Available No t Available hydrocodone 5 mg-acetamin ophen 325 mg tablet TAKE 1 TABLET BY MOUTH EVERY 4 HOURS NEEDED FOR PAIN 04/29 completed Not Available Not Available Not Available ciprofloxac in 500 mg tablet TAKE 1 TABLET BY MOUTH EVERY 12 HOURS FOR 7 DAYS 10/18 completed Not Available Not Available Not Available tramadol 50 mg tablet Take 1 tablet every 6 hours by oral route as needed for 30 days. 06/24 completed Not Available Not Available Not Available oxycodone-a cetaminophe n 5 mg-325 mg tablet TAKE 1 TABLET BY MOUTH EVERY 8 HOURS NEEDED FOR PAIN 04/29 completed Not Available Not Available Not Available amoxicillin 875 mg tablet TAKE 1 TABLET BY MOUTH EVERY 12 HOURS WITH MEALS FOR 10 DAYS 05/24 completed Not Available Not Available Not Available famotidine 20 mg tablet TAKE 1 TABLET BY MOUTH TWICE DAILY active Not Available Not Available No t Available methocarbam ol 750 mg tablet TAKE 1 TABLET BY MOUTH EVERY 8 HOURS FOR 7 DAYS 04/29 completed Not Available Not Available Not Available pravastatin 10 mg tablet TAKE 1 TABLET BY MOUTH ONCE DAILY 03/20 completed Not Available Not Available Not Available DOK 100 mg capsule TAKE 1 CAPSULE BY MOUTH EVERY 12 HOURS FOR 10 DAYS 06/24 completed Not Available Not Available Not Available polymyxin B sulfate 10,000 unit-trimet hoprim 1 mg/mL eye drops INSTILL 1 DROP INTO AFFECTED EYE(S) EVERY 6 HOURS 02/20 completed Not Available Not Available Not Available pravastatin 20 mg tablet TAKE 1 TABLET BY MOUTH ONCE DAILY FOR 90 DAYS active Not Available Not Available No t Available ibuprofen 600 mg tablet TAKE 1 TABLET BY MOUTH THREE TIMES DAILY FOR 5 DAYS 10/16 completed Not Available Not Available Not Available levofloxaci n 500 mg tablet Take 1 tablet every 24 hours by oral route for 10 days. 06/24 completed Not Available Not Available Not Available methylpredn isolone 4 mg tablets in a dose pack Take 1 dose pk by oral route as directed. 06/24 completed Not Available Not Available Not Available nitrofurant oin monohydrate /macrocryst als 100 mg capsule TAKE 1 CAPSULE BY MOUTH EVERY 12 HOURS FOR 10 DAYS 11/02 completed Not Available Not Available Not Available Vitamin D active Not Available Not Marnie ilable Not Available pravastatin 01/19 completed Not Available Not Available Not Available Voltaren 1 % topical gel APPLY 2 GRAMS TO THE AFFECTED AREA(S) BY TOPICAL ROUTE 4 TIMES PER DAY 2019 active Not Available Not Available Not Avai lable Vitals Date Recorded Body height Provider Name an d Address Organization Details Last Updated DateTime 05/06/2020 165.1 cm Melba Michael [facility] [place] 05/06/2020 12:45:03 Date Recorded Body height Body mass index (BMI) Body weight Pain severity - 0-10 verbal numeric rating [Score] - Reported Provider Name and Address Organization Details Last Updated DateTime 05/24/2020 165.1 cm 22.8 kg/m2 09513.15 g 8 Nydia Garay [facility] [place] 05/24/2020 12:31:21 Date Recorded Body height Body mass index (BMI) Body weight Pain severity - 0-10 verbal numeric rating [Score] - Reported Provider Name and Address Organization Details Last Updated DateTime 06/06/2020 165.1 cm 22.7 kg/m2 83094 g 5 Nydia Cardenassangita [facility] [place] 06/06/2020 13:24:23 Date Recorded Body height Body mass index (BMI) Body weight Heart rate Oxygen saturation Oxygen saturation in Arterial blood by Pulse oximetry Respiratory rate Body temperature Pain severity - 0-10 verbal numeric rating [Score] - Reported Systolic blood pressure Diastolic blood pressure Provider Name and Address Organization Details Last Updated DateTime 1 165.1 cm 23.3 kg/m2 77632.6 5 g 112 /min 97 % 97 % 16 /min 97.8 [degF] 0 146 mm[Hg] 84 mm[Hg] Nydia Ronaldsangita [facility] [place] 15:24:46 Date Recorded Systolic blood pressure Diastolic blood pressure Provider Name and Address Organization Details Last Updated DateTime 06/24/2020 138 mm[Hg] 94 mm[Hg] BRIGIDA MOSQUERA, [employer] [address] [place], [address] 06/24/2020 15:45:27 Date Recorded Body height Body mass index (BMI) Body weight Heart rate Oxygen saturation Oxygen saturation in Arterial blood by Pulse oximetry Body temperature Pain severity - 0-10 verbal numeric rating [Score] - Reported Systolic blood pressure Diastolic blood pressure Provider Name and Address Organization Details Last Updated DateTime 1 165.1 cm 23.8 kg/m2 14099.7 1 g 112 /min 96 % 96 % 98.8 [degF] 2 125 mm[Hg] 76 mm[Hg] Karen Day [facility] [place] 13:56:37 Social History Question Answer Notes LastModified by Organizat ion Details LastModified Time Tobacco Smoking Status Former Smoker 2016 quit will smoke one every once and a while. Quit after dx Nydia Arialenin delgado [facility] [place] 10/19/2019 16:33:35 Accident Related Injury No [email or web address] Information not available 10/15/2020 Do You Have An Advance Directive? No [email or web address] Information not available 10/15/2020 What Is Your Level Of Alcohol Consumption? None Very Rarely [email or web address] Information not available 10/07/2018 Is Blood Transfusion Acceptable In An Emergency? Yes [email or web address] Information not available 10/15/2020 What Is Your Level Of Caffeine Consumption? Heavy [email or web address] Information not available 10/15/2020 How Much Tobacco Do You Chew? None [email or web address] Information not available 10/15/2020 In The 14 Days Before Symptom Onset, Have You Had Close Contact With A Laboratory-confir med COVID-19 While That Case Was Ill? No [email or web address] Information not available 10/15/2020 In The 14 Days Before Symptom Onset, Have You Had Close Contact With A Person Who Is Under Investigation For COVID-19 While That Person Was Ill? No [email or web address] Information not available 10/15/2020 In The 14 Days Before Symptom Onset, Did The Patient Spend Time In [facility]? No [email or web address] Information not available 11/03/2019 Have You Been To An Area Known To Be High Risk For COVID-19? No [email or web address] Information not available 10/15/2020 Are You Currently Employed? Yes [email or web address] Information not available 10/15/2020 Are You Deaf Or Do You Have Serious Difficulty Hearing? No [email or web address] Information not available 10/15/2020 What Type Of Diet Are You Following? REGULAR [email or web address] Information not available 10/15/2020 Which Illicit Or Recreational Drugs Have You Used? 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 Alone [email or web address] Information not available 10/15/2020 Fall Risk No [email or web address] Information n ot available 01/19/2018 Advanced Directive No Information not available 10/16/2018 Power Of Elevator Technician No [email or web address] Informa tion not available 10/16/2018 Living Will No [email or web address] Information n ot available 10/16/2018 Positive COVID19 Symptom: Cough No Information not available 10/19/2019 Positive COVID19 Symptom: Fever No Information not available 10/19/2019 Positive COVID19 Symptom: Respiratory Changes No Information not available 10/19/2019 Marital Status Single tequila Informatio n not available 06/29/2019 What Was The Date Of Your Most Recent Tobacco Screening? 06/24/2020 [email or web address] Information not available 10/15/2020 How Many Children Do You Have? 2 [email or web address] Information not available 01/19/2018 Performs Monthly Self-breast Exam? No [email or web address] Information no t available 10/15/2020 Are You Sexually Active? No [email or web address] Information not available 10/15/2020 At What Age Did You Start Smoking Tobacco? 15 [email or web address] Information not available 10/15/2020 How Much Tobacco Do You Smoke? 1 PPW [email or web address] Information not available 2017 How Many Years Have You Smoked Tobacco? 40 Heavy Smoker 1ppd [email or web address] Information not available 10/15/2020 Work Related Injury? No [email or web address] Information not available 10/15/2020 Sex: Unknown Functional Status Question Answer Note LastModified by Organization D etails LastModified Time What is your exercise level? Moderate [email or web address] Information not available 10/15/2020 Mental Status None recorded. Family History Relationship Description Onset Age of this Age Resolved Age Notes LastModified by Organization Details LastModified Time Paternal Grandmother Cerebrovascu lar accident [email or web address] Not available 18:07:18 Paternal Grandmother Diabetes mellitus [email or web address] Not available 2018 18:07:30 Father Malignant neoplastic disease [email or web address] Not available 2020 13:42:54 Sister Bipolar disorder [email or web address] Not available 2020 13:42:54 Maternal Grandmother Bipolar disorder [email or web address] Not available 2020 13:42:54 Medical History Condition Response High blood pressure N Coronary Artery Disease N HIV or AIDS N Thyroid Disease N Heart Disease/Heart Problems N GI Problems N Heart Attack ([place]) N Psychiatric Illness N Diabetes N Muscle, Joint, or Bone Problems N Bleeding Disorder N Tuberculosis N Cancer N Stroke N Asthma N Vitamin D Deficiency Y Epilepsy/Seizures N High Cholesterol Y Heart Disease N Hypertension N Osteoporosis N Kidney Disease N Gynecological History Statement/Question Response Abnormal Pap N Date of LMP Sexually Active? N Post Menopausal Bleeding N STIs/STDs N Date of Last Pap Smear Sexual Problems? N Current Control Method Hysterectom y Age at Menarche 12 Most Recent Mammogram 04/19/2019 Obstetrics History GPAL:G 2 P 2 0 0 0 Type Value Full Term 2 Total 2 Immunizations Vaccine Type Date Status Note Provider Nam e and Address Organization Details Recorded Time Tdap 6 completed Nydia Ronaldsangita sandy, [facility] 02/20/2019 18:03:38 Influenza, split virus, quadrivalent, preservative 5 completed Nydia Ronaldsangita sandy, [facility] [place] 02/20/2019 18:03:54 Influenza, split virus, quadrivalent, PF 9 completed Not Available [employer] 05/27/2019 02:26:01 Past Encounters Encounter ID Performer Location Encounter Start Date Encounter Closed Date Diagnosis/Indication Diagnosis SNOMED-CT Code Diagnosis ICD10 Code Diagnosis Note [id number] Mendy Christiansen [facility] [address] [place] [address] [place] [address] 2017 15:01:02 2017 16:50:31 Acute sinusitis 28071719 J01.90 [id number] Manda Stark MD [facility] [address] [place] [address] 01/19/2018 17:21:49 01/19/2018 18:05:08 Screening mammography 11377973 Z12.31 Gynecologi c examination 38587249 Z01.419 [id number] OLEG PRADHAN [facility] [address] [place] [address] [place] [address] 10/07/2018 19:39:30 10/07/2018 21:30:54 Planned telephone contact [id number] Z76.89 Pain in right knee 70767 72638 00788 M25.561 Strain of quadriceps tendon 986110232 S76.111A [id number] ASHA PRINCE [facility] [address] [place] [address] [place] [address] 10/16/2018 14:54:17 10/16/2018 15:37:51 Planned telephone contact [id number] Z76.89 Hordeolum externum of lower eyelid 365066449 H00.019 Left Acute conjunctivitis 537 67861 H10.32 [id number] BRIGIDA MOSQUERA, [facility] [address] [place] [facility] [place] [address] 02/21/2019 17:17:56 02/21/2019 18:41:35 Administration of influenza vaccine 47234824 Z23 Depression screening 171 736403 Z13.31 Adult heal th examination 456046155 Z00.00 Hyperlipidemia 62685411 E78.5 Hepatitis C screening 41 5730568 Z11.59 [id number] BRIGIDA MOSQUERA CNP CM [address] [place] [address] 03/20/2019 12:27:17 03/20/2019 13:53:37 Hyperlipidemia 18957465 E78.5 LDL still above goal on pravastati n 10 mg at HS will increase to 20 mg at hs- she will double up on her 10 mg and pick new script up when neededlipi ds and CMP in 6 months Screening for malignant neoplasm of breast 348136875 Z12.39 Hyperglycemia 52130727 R 73.9 FBG 104A1c 5.8will check at 6 month f/u in office Serum crea tinine above reference range 569247060 R79.89 slightly elevatedwi ll evaluate in 6 months with labs Vitamin D deficiency 347 67709 E55.9 OTC vit D supplement 5000 units daily recommende d [id number] BRIGIDA MOSQUERA CNP CM [address] [place] [address] 06/20/2019 17:15:02 06/20/2019 18:27:18 Bilateral knee pain 0787637441 3959694 M25.561 M25.562 ensure to take ibuprofen with foodreferr al to Ortho for evaluation and tx [id number] Carrillo Ortiz MD ORTHO [address] [place] [address] 06/29/2019 16:30:02 06/29/2019 17:14:55 Radiographic imaging procedure requested [id number] Z76.89 Osteoarthr itis of knee 881686122 M17.0 Patellofem oral maltracking 908439303 M23.8X1 M23.8X2 [id number] BRIGIDA MOSQUERA CNP CM [address] [place] [address] 07/25/2019 12:54:12 07/25/2019 14:33:44 On examination - rash present 480123879 R21 Acute sinusitis 21739391 J01.90 History of basal cell carcinoma of eyelid 0598577000 9107 Z85.828 [id number] BRIGIDA MOSQUERA, [facility] [address] [place] [place] [address] 10/19/2019 15:23:55 10/19/2019 17:23:49 Solitary nodule of lung 585108270 R91.1 J43.9 J84.10 pulmonary nodules- patient has right lower lobe nodule 1.4 cm with two additional right middle lobe nodules- per radiologis t 'malignanc y must be excluded' recommend either short term f/u or Ct guided lung biopsy. CT chest also showed emphysemat ous changes and finding of 'possible early pulmonary fibrosis' . patient has been a smoker for years- she has quit. discussed options for f/u on CT chest results- at this time plan to refer to pulmonolog y for consult. [id number] PULMONARY [address] [place] [place] [address] 11/03/2019 16:57:58 11/06/2019 18:46:15 Multiple nodules of lung 184360609 R91.[address] scan on October 14, 2019 remarkable for right lung pulmonary nodules. Patient is an active smoker. Family history of lung cancer. Infectious /inflammat ory/neopla stic etiology entertaine d. Patient does not undergo any invasive procedures at this time will request a PET CT scan. Patient will consider lung biopsy after PET/CT results. Perennial allergic rhinitis with seasonal variation 168506375 J30.89 On Flonase as needed. Nicotine dependence 5629 4008 F17.200 On and off smoke. 1 pack/week. Pulmonary emphysema 8743 3001 J43.9 History of pneumothorax 719397770 Z87.09 History of spontaneou s pneumothor ax at age of 29 status post chest tube insertion. [id number] Michele Bliss MD PULMONARY [address] [address] 12/26/2019 10:25:34 12/26/2019 12:37:57 Multiple nodules of lung 611202068 R91.[address] scan on October 14, 2019 remarkable for right lung pulmonary nodules. Patient is an active smoker. Family history of lung cancer. PET CT scan on November 29, 2019 remarkable for right middle lobe nodule FDG uptake. Lung biopsy in December 04, 2019 remarkable for non-small cell carcinoma consistent with squamous cell carcinoma. Brain MRI on 12/19/2019 with no intra-axia l mass. Perennial allergic rhinitis with seasonal variation 403157312 J30.89 Nicotine dependence 5629 4008 F17.200 Pulmonary emphysema 8743 3001 J43.9 Saturation 98% on room air at rest. Lung more clear to auscultati on. Normal PFTs. Patient asymptomat ic. History of pneumothorax 289009869 Z87.09 History of spontaneou s pneumothor ax at age of 29 status post chest tube insertion. Squamous c ell carcinoma of lung 948266412 C34.90 At the attention of her oncologist [id number] Sharath Chapman MD [facility] [address] [place] [address] 01/23/2020 11:45:54 01/23/2020 12:52:43 Non-small cell lung cancer 766263169 C34.[address] scan is several months old will need a repeat study. Ex-smoker 0956322 Z87.89 1 Carotid bruit 244756353 R09.89 [id number] Sharath Chapman MD [facility] [address] [place] [address] 02/15/2020 11:11:04 02/15/2020 12:05:24 Non-small cell lung cancer 994358114 C34.90 I personally reviewed the repeat CT scan. There is slight growth in the middle lobe lesion the other lesions are essentiall y stable. [id number] Sharath Chapman MD [facility] [address] [place] [address] 03/19/2020 12:12:13 03/19/2020 13:26:31 Non-small cell lung cancer 772837604 C34.90 [id number] BRIGIDA MOSQUERA, [employer] [facility] [address] [place] [address] 03/21/2020 12:25:35 03/21/2020 13:15:19 Hyperlipidemia 62094555 E78.5 Fluid leve l behind tympanic membrane 108592458 H65.01 Adult heal th examination 923744712 Z00.00 History of pneumonectomy 856474504 Z90.2 03/11/20 Non-small cell lung cancer 775915674 C34.90 [id number] Sharath Chapman MD [facility] [address] [facility] [place] [address] 04/11/2020 13:07:30 04/11/2020 13:33:34 Non-small cell lung cancer 064618923 C34.90 Neuropathic pain 8450165 09 M79.2 [id number] Mendy Christiansen CNP [facility] [address] [place] [address] 04/29/2020 16:37:49 04/29/2020 17:32:24 Planned telephone contact 245925617 Z76.89 Influenza- like symptoms 885239743 R68.89 Suspected COVID-19 48149 4004 Z03.89 Discussion and teach back included home care instructio ns for exposure to COVID 19: Patient is instructed to stay home and self isolate for 14 days or until a negative COVID 19 testing result, While at home frequent handwashin g and disinfecti ng areas is also important to decrease or prevent transmissi on of COVID-19. The patient is also instructed to refrain from public areas including transporta tion work and school, if patient has to leave isolation, wear of mask and self distancing of at least 6 feet is important to prevent transmissi on of COVID 19. Advised the patient at this time there is no outpatient treatment for the Covid we just treat the symptoms with Tylenol or ibuprofen over-the-c ounter for pain and fever, salt water gargles for sore throat and cold medicine for any sinus congestion or cough. If patient becomes ill or symptomati c with shortness of breath, patient instructed to go to immediatel y to the closest emergency department for further evaluation and identify if their test results are positive to assist in their care. Also included is the importance of follow-up care with primary care and reasons to return to urgent care or emergency department . Streptococ dk sore throat 89492330 J02.0 Had a discussion with the patient with teach back and advised I will start you on antibiotic s for the infection. Risks and benefits of antibiotic s include the risk of developing an allergic reaction. Anybody can develop an allergic reaction to any medication . There is also risk of developing yeast infection, especially in women or diabetics. Another risk is upset stomach, most antibiotic s will make a person sick to their stomach so I always recommend it be taken with food. The benefits of antibiotic is the resolution of the infection. Advised the patient you need to take the full course of antibiotic s even if you start to feel better. When someone stops taking an antibiotic because they feel better the bacteria is not necessaril y killed off, it is just slowed and then the bacteria comes back stronger and resistant to that antibiotic . 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 [id number] BRIGIDA MOSQUERA CNP [facility] [address] [place] [address] 05/24/2020 12:25:51 05/24/2020 13:18:45 Acute maxillary sinusitis 76257910 J01.00 f/u in office if sx do not improve with tx plan [id number] BRIGIDA MOSQUERA CNP [facility] [address] [place] [address] 06/06/2020 13:17:51 06/06/2020 15:11:37 Acute sinusitis 04157688 J01.90 patient is to contact clinic if no improvemen t noted with levaquin; has appt 06/24/20 in office counseled on SE if no improvemen t then plan to get CT sinus and referral to ENT- she has already had these symptoms for about one month. failed on doxycyclin e and steroid dose ajay, previously treated in 04/29/20 with amoxicilli n. continue with nasal spray and nasal rinse. [id number] BRIGIDA MOSQUERA CNP [facility] [address] [place] [address] 06/24/2020 14:56:23 06/24/2020 16:27:29 Screening for malignant neoplasm of colon 056471646 Z12.11 Adult heal th examination 678177324 Z00.00 Maxillary sinus pain [id number] R51.9 continues to have sinus pain after being treated with antibiotic s for about 24 days will evaluate with CT and refer to ENT Heartburn [id number] R12 Postmenopausal state [phone] Z78.0 Screening for malignant neoplasm of breast [id number] Z12.39 patient does not want to have mammogram at this time due to her recent right pneumonect lazarus and she is still experienci ng tenderness to her right chest History of pneumonectomy [id number] Z90.2 03/11/20 Hyperlipidemia [id number] E78.5 will get her labs done- missed by [facility] Elevated blood-pressure reading without diagnosis of hypertension [id number] R03.0 [id number] Sharath Chapman MD SURG ASS [address] [facility] [address] [place] [address] 10/15/2020 13:42:53 10/15/2020 14:10:19 Non-small cell carcinoma of lung, TNM stage 1 [id number] C34.90 Patient had to stage 1 primary lung cancers; 1 squamous 1 adeno. Health Concerns Section Related Observation LastModified by Organization Detai ls LastModified Time None Recorded Concern Status LastModified by Organization Details LastModified Time None Recorded Advance Directives Directive N: Payers Encounter Date Sequence Insurance Name Policy Number Policy Stewart Covered Member ID Stewart Member ID Guarantor Name 05/06/2020 1 [facility] [id number] Anca Abel [id number] Anca L Abel 05/24/[address] [place] [address] [id number] Anca Abel [id number] Anca L Abel 06/06/2020 1 [facility] [id number] Anca Abel [id number] Anca L Abel 06/24/2020 1 [facility] [id number] Anca Abel [id number] Anca L Abel 10/15/[address] [place] [address] [id number] Anca Abel [id number] Anca L Abel Notes Date Note Type Note Provider Name and Address Organization Details Recorded Time 0 text/html 59 y/o female c/o Right side pain. On March 11 patient had Rt. lung removed due to lung cancer. She describes her pain as tender and sharp lasting a few moments. Patient's pain level runs 7-8 interfering with sleep and work. She was taking hydrocodone at night time pain has eased up but states that the hydrocodone is not agreeing with her stomach and is causing stomach pain. Sergei Forte MD [address], [place], [address], [facility] 05/06/2020 19:55:25 1 text/html Sinusitis/AllergyReported bypatient.Onset/Timing:rec urring; Patient was seen in urgent care on 04/29 and given amoxicillin at that time. She felt like her sore throat got better but her sinuses did not improve Location:headache side of head;facial pain left;sinus pain diffuse;pain behind the eyes right Quality:congested Severity:current pain 8/10 Risk Factors:no current smoking or tobacco use; no history of smoking; no increased stress; no family history of allergies; no history of nasal trauma; no allergy to aspirin; no history of nasal polyps; history of right pneumonectomy Feb 2020 Alleviating factors:nothing gives relief Associated Symptoms:no nasal discharge; no fever; no weight loss; no hemoptysis; no hematemesis; no difficulty breathing; no feeling of strangulation; no nausea or vomiting; right ear pain appetite- goodtemp good yesterday at cardiology appt.has been using decongestants and noticed elevated BP- advised her to d/c these- will give her a steroid dose ajay instead plus antibioticrecommended she use neti pot with distilled water.states augmentin made her sick to her stomachhas been using her flonase, saline nasal spray, mucinex and delia seltzer sinus with no improvement in her sx BRIGIDA MOSQUERA CNP [address], [place], [address], [facility] 05/24/2020 15:05:16 1 text/html Telemedicine appointment today to follow-up on her acute sinusitis. Patient was last seen via telemed on 05/24/2020. She was given doxycycline for 14 days as well as a steroid Dosepak. Patient reports that her symptoms started to improve initially but then she did not notice any change. She reports increased pain to the right side of her face with congestion and intermittent pain to her right ear. Denies fever, chills, shortness of breath. She has been using a saline rinse with no improvement in her symptoms. patient was treated 04/29/20 at for strep throat- was given amoxicillin 875 mg BID x 10 daysreports she only had GI SE to cipro- will start her on levaquin She is also been trying to use the Debrox earwax drops. BRIGIDA MOSQUERA, [employer] [address] , [place], [phone], [facility] - [facility] 06/06/2020 18:02:34 1 text/html Annual HPIReported bypatient.Previous Preventative Services:last mammogram (Apr 2019); last colonoscopy (never); last bone density (2016); s/p hysterectomy; does not want to have mammogram due to tenderness r/t her right pneumonectomy Control Method:S/P hysterectomy; ovaries remain Vaginal/Vulvar Complaints:no vaginal discharge; no vaginal odor; no vaginal dryness Pelvic/Abd Pain:no abdominal pain; no pelvic pain complaints:no pain during urination; no urge incontinence; no stress incontinence; no nocturia GI complaints:no diarrhea; no constipation here today for her annual wellnessAll lab results Discussed with Patient in detail. Reviewed chart, visits, labs, medications, vital signs, history and allergies. All questions & concerns addressed.her lipid lab was missing from her results- [facility] did not draw - patient given order to have completed.continues to have right maxillary sinus pressure/pain. she has been on amoxicillin prescribed for strep by 04/2020, she has been on 14 days of doxycycline with a steroid dose ajay with some relief but not complete, she just finished levaquin x 10 day prescribed on 06/06/20. c/o right maxillary and frontal sinus pressure, pain, pain behind her right eye and ear fullness. denies fever, chills, SOB, CP. has some chest tightness on the right- the side of her pneumonectomy. O2 sat today at 97% on RA. Healthy lifestyle modification counseling done. Encouraged compliance of treatment plan and healthy lifestyle modifications. Discussed risk factors and modifications to consider.recommended COVID vaccine; she will need the PPSV 23 in future also- at this time focus on getting COVID vaccine.has been having intermittent heartburn- will prescribe pepcid bid prn BRIGIDA MOSQUERA, [employer] [address], [place], [address], [facility] 06/24/2020 21:45:55 1 text/html Lungs/Pleura Parenchymal and Pleural SpaceReported bypatient.Context:history of cancer Duration:3 months Status post pneumonectomy for what turned out to be 2 T1 non-small cell lung cancers. Lymph nodes were negative. Patient has a follow-up appointment with Dr. Carson in April. Sharath Chapman MD [address], [place], [phone], [facility] 10/15/2020 14:11:43 OBGyn Episode No OBEpisode recorded.
== END 2024-08-28 16:43 | disposition home or self-care (01) ==
PROVIDERS: Emergency Provider Nurse Practitioner Family
DX: N30.01 Acute cystitis with hematuria (principal); E78.00 Pure hypercholesterolemia, unspecified; Z87.891 Personal history of nicotine dependence; Z90.2 Acquired absence of lung [part of]
CPT/HCPCS: 81003; 87086; 99213; G0463